=== PATIENT | male | born 1985 ===

== ENCOUNTER 2021-04-06 17:35 | Emergency (ER) | payer SELFPAY ==
[~2021-04-06] VITALS: Ht 172.7 cm; Wt 111.2 kg
[2021-04-06 19:56] LABS: BASOPHILS % (AUTO) 1 % (0-1); EOSINOPHILS % (AUTO) 1 % (1-7); LYMPHOCYTES % (AUTO) 24 % (22-44); MEAN CORPUSCULAR HEMOGLOBIN 31.2 pg (27.5-34.5); MEAN CORPUSCULAR HGB CONC 35.4 g/dL (33.2-36.2); MEAN PLATELET VOLUME 7.8 fL (7.4-10.4); MONOCYTES % (AUTO) 9 % (2-9); NEUTROPHILS % (AUTO) 64 % (42-75); PLATELET COUNT 214 x10^3/uL (130-400); RED CELL DISTRIBUTION WIDTH 14.2 % (9.4-14.8)
[2021-04-06 20:02] LABS: ALANINE AMINOTRANSFERASE 43 U/L (12-78); ALBUMIN 3.4 g/dL (3.4-5.0); ANION GAP 12 mmol/L (5-15); CALCIUM 8.8 mg/dL (8.5-10.1); CHLORIDE 100 mmol/L (98-107); CREATININE 0.81 mg/dL (0.7-1.3)
[2021-04-06 20:05] LABS: ALKALINE PHOSPHATASE 100 U/L (45-117); BILIRUBIN,TOTAL 0.6 mg/dL (0.2-1.0); TOTAL PROTEIN 7.9 g/dL (6.4-8.2)
[2021-04-06] MEDS ORDERED: INSULIN SINGLE DOSE, ER ONE (20:50)
[2021-04-06] MEDS ORDERED: INSULIN REGULAR 100 UNITS/ML, 3ML VIAL SQ-INSULIN SCH (21:00)
[2021-04-06 21:30] VITALS: BP 116/71
--- NOTE | 2021-04-06 21:45 | NUR ---
pt tolerated insulin well, states feeling "good". bs is 284. pt steady ambulating, states uderstanding of d/c instructions. pt's s/o to drive home
== END 2021-04-06 22:08 | disposition home or self-care (01) ==
LOC: ED 18:00
DX: E11.65 Type 2 diabetes mellitus with hyperglycemia (principal); R42 Dizziness and giddiness; H53.8 Other visual disturbances; R35.0 Frequency of micturition
CPT/HCPCS: 36415; 80053; 82962; 83036; 85025; 99283; J1815